=== PATIENT | female | born 1975 | race African-American/Black ===

== ENCOUNTER 2016-07-15 14:42 | Emergency (ER) | payer MEDICARE, MEDICAID ==
--- NOTE | 2016-07-15 16:46 | ED Physician Chart ---
Chief Complaint/HPI - Patient Information Date Seen:: 07/15/16 Time Seen:: 16:37 Chief Complaint:: boil History of Present Illness:: pt here for boil on her bottom? x 3 d. she says it rupturedthis am and has had so e drainaige. no relief from pain w tylenol at home. no fever. no gen weakness. pt thinks this began bc she has been riding her bike around the neighborhood in bike shorts. says she has no pmh but her pmd has told her she is at risk of iddm. obese. she says she has been having boils come + go at different places since was a teen. Allergies:: Allergies Allergy/AdvReac Type Severity Reaction Status Date / Time No Known Allergies Allergy Verified 10/19/15 17:56 Vitals:: Vital Signs - 8 hr 07/15/16 16:20 Temp 98.8 F HR 105 RR 23 BP 143/89 O2 Sat % 98 Historian:: Patient Review of Systems - Review of Systems General/Constitutional: No fever, No chills, No weight loss, No weakness, No diaphoresis, No edema, No loss of appetite Skin: No skin lesions, No rash, No bruising Head: No headache, No light-headedness Eyes: No loss of vision, No pain, No diplopia ENT: No earache, No nasal drainage, No sore throat, No tinnitus Neck: No neck pain, No swelling, No thyromegaly, No stiffness, No mass noted Cardio Vascular: No chest pain, No palpitations, No PND, No orthopnea, No edema Pulmonary: No SOB, No cough, No sputum, No wheezing GI: No nausea, No vomiting, No diarrhea, No pain, No melena, No hematochezia, No constipation, No hematemesis G/U: No dysuria, No frequency, No hematuria Musculoskeletal: No bone or joint pain, No back pain, No muscle pain Endocrine: No polyuria, No polydipsia Psychiatric: No prior psych history, No depression, No anxiety, No suicidal ideation Hematopoietic: No bruising, No lymphadenopathy Allergic/Immuno: No urticaria, No angioedema Neurological: No syncope, No focal symptoms, No weakness, No paresthesia, No headache, No seizure, No dizziness, No confusion, No vertigo Past Medical History - Past Medical History Past Medical History: Other (prior boils) Social History: Non Smoker, No Alcohol Medication: Reviewed Family Medical History - Family Member Father History Unknown: Yes Ethnicity: Non- Living Status: Hx Family Diabetes: Yes Mother Living Status: Still Living Hx Family Hypertension: Yes Hx Family Diabetes: Yes Physical Exam - Physical Examination General/Constitutional: Awake, Well-developed, well-nourished, Alert, No distress, GCS 15, Non-toxic appearing, Ambulatory Other Gen/Cons comments:: mod obese. nontoxic Head: Atraumatic Eyes: Lids, conjuctiva normal, PERRL, EOMI Skin: Nl inspection, No rash, No skin lesions, No ecchymosis, Well hydrated, No lymphadenopathy ENMT: External ears, nose nl, Nasal exam nl, Lips, teeth, gums nl Neck: Nontender, Full ROM w/o pain, No JVD, No nuchal rigidity, No bruit, No mass, No stridor Respiratory: Nl effort/Exclusion, Clear to Auscultation, No Wheeze/Rhonchi/Rales Cardio Vascular: RRR, No murmur, gallop, rubs, NL S1 S2 GI: No tenderness/rebounding/guarding, No organomegaly, No hernia, Normal BS's, Nondistended, No mass/bruits, No McBurney tenderness : No CVA tenderness Extremities: No tenderness or effusion, Full ROM, normal strength in all extremities, No edema, Normal digits & nails Other Extremities comments:: rt gluteal region examined w female rn present. small scab 1cm at rt med/inf gluteal region. no deep palpable fluctuance but local pressure does exude a drop of pus that we obtained for cx. Neuro/Psych: Alert/oriented, DTR's symmetric, Normal sensory exam, Normal motor strength, Judgement/insight normal, Mood normal, Normal gait, No focal deficits Misc: normal gait, Normal back, No paraspinal tenderness Assessment - Procedures Procedures:: i+d abscess at rt buttock betadyne prep. lidocaine 2pct epi 4ml local for anesth. #15 scalpel to incise into center of eschar. no further ron pus found. explored w forceps. irrig w ns. nurse prov dressing.. Informed Consent: Procedure/risk/benefits explained by MD: Yes ED Septic Shock - . Is Septic Shock (SBP<90, OR Lactate>4 mmol\L) present?: No - <6hrs of presentation: Vital Signs: Vital Signs - 8 hr 07/15/16 16:20 Temp 98.8 F HR 105 RR 23 BP 143/89 O2 Sat % 98 Reassessment (Disposition) - Reassessment Reassessment Condition:: Improved - Diagnosis Diagnosis:: early boil at rt gluteal region s/p i+d in ed today - Aftercare/Follow up Instructions Aftercare/Follow-Up Instructions:: Counseled pt regarding lab results/diagnosis & need follow up Notes:: use norco for pain. take abx (keflex/bactrim as rxd)...see pmd in 2-3 d for wound check and further advice. sitz baths 2x/day and change dressing. use bacitracin ointment topical. keep wound area clean. - Patient Disposition Discharge/Transfer:: Home Condition at Disposition:: Improved
== END 2016-07-15 17:36 | disposition home or self-care (01) ==
LOC: ER 14:42
DX: L02.31 Cutaneous abscess of buttock (principal)
CPT/HCPCS: 10060; 87070-90; 87075-90; 87205-90; A4217; X6444; Z7502; Z7610

== ENCOUNTER 2016-08-24 05:14 | Emergency (ER) | payer MEDICARE, MEDICAID ==
--- NOTE | 2016-08-24 05:50 | ED Physician Chart ---
Chief Complaint/HPI - Patient Information Date Seen:: 08/24/16 Time Seen:: 05:40 Chief Complaint:: Nasal congestion for about one week. History of Present Illness:: Pt has had nasal congestion with yellow green nasal discharge for about one week. Pt has noticed frontal sinus pressure. No fever or dyspnea. No N/V/D. No lightheadedness. Pt has had occasional cough with yellow phlegm. Allergies:: Allergies Allergy/AdvReac Type Severity Reaction Status Date / Time No Known Allergies Allergy Verified 10/19/15 17:56 Vitals:: Vital Signs - 8 hr 08/24/16 05:17 Temp 97.2 F HR 82 RR 18 BP 142/82 Historian:: Patient Family MD/PCP:: [facility]. LMP:: 08/11/16 Review:: Nurse's Note Reviewed Review of Systems - Review of Systems General/Constitutional: No fever, No chills, No weight loss, No weakness, No edema, Loss of appetite Skin: No skin lesions, No rash, No bruising Head: Headache (with frontal sinus pressure), No light-headedness Eyes: No loss of vision, No pain, No diplopia ENT: No earache, Nasal drainage, No sore throat Neck: No neck pain, No swelling, No stiffness, No mass noted Cardio Vascular: No chest pain, No palpitations, No edema Pulmonary: No SOB, Cough (with occasional yellow phlegm), No wheezing GI: No nausea, No vomiting, No diarrhea, No pain G/U: No dysuria, No frequency, No hematuria Physical Therapist Clinic Director: No vaginal discharge, No abnormal vaginal bleed Musculoskeletal: No bone or joint pain, No back pain, No muscle pain Endocrine: Polyuria Psychiatric: Prior psych history (with schizophrenia), No depression, No anxiety , No suicidal ideation, No homicidal ideation, No auditory hallucination, No visual hallucination Hematopoietic: No bruising, No lymphadenopathy Allergic/Immuno: No urticaria, No angioedema Neurological: No syncope, No focal symptoms, No weakness, No paresthesia, No dizziness, No confusion, No vertigo Past Medical History - Past Medical History Past Medical History: HTN Family History: Diabetes Melitus (parents), HTN (parents.) Social History: Non Smoker, No Alcohol, No Drug Use, Single, Other (lives with a friend) Employment:: Student. Surgical History: None Psychiatricy History: Schizophrenia Medication: Reviewed Family Medical History - Family Member Father History Unknown: Yes Ethnicity: Non- Living Status: Hx Family Cancer: No Hx Family Coronary Artery Disease: No Hx Family Hypertension: No Hx Family Stroke: No Hx Family Diabetes: Yes Hx Family Seizures: No Hx Family Dementia: No Hx Family HIV: No Hx Family COPD: No Hx Family Hepatitis: No Mother Living Status: Still Living Hx Family Cancer: No Hx Family Hypertension: No Hx Family Stroke: No Hx Family Diabetes: Yes Hx Family Dementia: No Hx Family AIDS: No Hx Family HIV: No Physical Exam - Physical Examination General/Constitutional: Awake, Well-developed, well-nourished, Alert, No distress, GCS 15, Non-toxic appearing, Ambulatory Other Gen/Cons comments:: Breathes comfortably, speaks clearly, ambulates without difficulty, and interacts normally. Head: Atraumatic Other Head comments:: Mild tenderness to percussion at frontal sinus regions. Eyes: Lids, conjuctiva normal, PERRL, EOMI Skin: Nl inspection, No rash, No skin lesions, No ecchymosis, Well hydrated, No lymphadenopathy ENMT: TM canals nl, Lips, teeth, gums nl, Oropharynx nl (except trace light yellow nasal discharge and postnasal drip), Tonsils nl Neck: Nontender, Full ROM w/o pain, No JVD, No nuchal rigidity, No mass, No stridor Respiratory: Nl effort/Exclusion, Clear to Auscultation, No Wheeze/Rhonchi/Rales Cardio Vascular: RRR, No murmur, gallop, rubs, NL S1 S2 GI: No tenderness/rebounding/guarding, No organomegaly, No hernia, Normal BS's, Nondistended, No mass/bruits Other GI comments:: obese but soft. Extremities: No tenderness or effusion, Full ROM, normal strength in all extremities, No edema, Normal digits & nails Neuro/Psych: Alert/oriented (oriented x 3), Mood normal, Normal gait, No focal deficits ED Septic Shock - . Is Septic Shock (SBP<90, OR Lactate>4 mmol\L) present?: No - <6hrs of presentation: Vital Signs: Vital Signs - 8 hr 08/24/16 05:17 Temp 97.2 F HR 82 RR 18 BP 142/82 Reassessment (Disposition) - Reassessment Reassessment:: 0602 Pt remains stable and comfortable. Pt requests to go home now. Aftercare instructions have been given. Reassessment Condition:: Improved - Diagnosis Diagnosis:: Acute frontal sinusitis, stable. - Aftercare/Follow up Instructions Aftercare/Follow-Up Instructions:: Refer to Discharge Instructions Notes:: Bedrest for today. May take Sudafed as directed. Tylenol 500 mg tab one tab po q6h prn pain or fever. F/U with PCP at [facility] in one day for recheck. Return to ER immediately if condition worsens or if any further questions/problems. Medication Prescribed:: Bactrim DS one tab po q12h for 14 days. D-28 R-0 - Patient Disposition Discharge/Transfer:: Home Time:: 06:05 Condition at Disposition:: Stable ED Discharge Plan - Patient Disposition Admit/Discharge/Transfer: PT DISCHARGED HOME Instructions: Sinusitis, Adult
== END 2016-08-24 06:10 | disposition home or self-care (01) ==
LOC: ER 05:14
DX: J01.10 Acute frontal sinusitis, unspecified (principal); I10 Essential (primary) hypertension; F20.9 Schizophrenia, unspecified
CPT/HCPCS: Z7502